=== PATIENT | male | born 1950 | race Caucasian/White ===

== ENCOUNTER → 2016-11-10 | Day surgery (SDC) | payer OTHER ==
[~2016-11-10] VITALS: Ht 185.4 cm; Wt 76.2 kg
[~2016-11-10] MED LIST: ALLOPURINOL300 M1 PO; FLOMAX0.4 M1 PO; PERCOCET 5-3251 EACH PO
--- NOTE | 2016-11-12 12:41 | RADIOLOGY REPORT ---
EXAMINATION: Fluoroscopy in the cystoscopy suite. CLINICAL INDICATION: Patient scheduled for right ureteroscopy and retrograde pyelography with stent placement. COMPARISON: None recent. TECHNIQUE: Fluoroscopic assistance was provided to Dr. Mark Anthony Victor in the cystoscopy suite. A total of 5 spot films are submitted for review. The total time fluoroscopy was 1.1 minutes FINDINGS/IMPRESSION: Initial injection of the distal right ureter shows a tortuous pelvic ureter and several intraluminal air bubbles. The following spot films document the steps taken in placement of a right ureteral stent, the proximal end of which is in the right renal pelvis and the distal end presumably in the bladder. Please refer to operative notes for further details.
--- NOTE | 2016-11-13 16:10 | Operative Report ---
Operative/Inv Procedure Report Surgery Date: 11/10/16 Name of Procedure: cystoscopy; right retrograde pyelogrma, right flexible ureteroscopy with laser lithotrypsy of ureter stone: right stent exchange. Pre-Operative Diagnosis: right stent and mid ureter stone Post-Operative Diagnosis: 1cm right mid ureter stone. Estimated Blood Loss: scant Surgeon/Chief Technical Officer: MATT PYLE MD Anesthesia: laryngeal mask airway Complications: NONE Condition: IMPROVED Operative/Procedure Note Note: Patient was taken to the operating room placed on the OR table in supine position. Timeout was performed, with the patient awake, in order to confirm the patient's correct identity, procedure, laterality, anesthesia, and other pertinent perioperative information.. After adequate anesthesia and antibiotics , the patient was then placed in lithotomy stirrups, draped and prepped in the usual surgical fashion. A 22 Vincentian cystoscope sheath with 30 angle lens was inserted without difficulty. Upon entering the bladder, the bladder was noted to be free of tumor, free of stone. Both orifices were in their orthotopic position, with clear reflux from the left ureter. The right ureter had a stent in place, which was grasped with an aligator grasper, and extracted intact, and without difficulty. The cystoscope was then re-inserted into the bladder. The right ureteral orifice was intubated with an 8 Vincentian cone-tipped catheter. Retrograde pyelogram was performed revealing a filling defect in the mid-proximal ureter consistent with large stone, and distal narrowing consistent with edema/ stricture. On fluoroscopy, there was mild proximal hydronephrosis. The cone- tipped catheter was removed, and then the right orifice was intubated with a 0.035 safety gluidewire. The Glidewire was advanced into the right ureter, and advanced into the right renal pelvis, with fluoroscopic visualization. Over the gluide wire, a flexible ureteroscope was rail-roaded, and advanced with fluoroscopic visualization into the right renal pelvis, with difficulty past the strictured area. The ureteroscope was then removed leaving the Glidewire in place. Over the Glidewire a 10 Vincentian by 35 cm ureteral access sheath was gently railroaded over the Glidewire. With fluoroscopic visualization, gentle dilatation with advancement of the ureteral access sheath was accomplished without difficultyt. The obturator was removed leaving the sheath in place. The gluidewire was left in place, and the flexible ureteroscope was advanced via the access sheath without difficulty. The large ureter stone was visualized, and under direct visualization the 400 g holmium YAG laser fiber was inserted through the ureteroscope. With the laser fiber in direct contact with the stone the yag laser was activated, and laser lithotrypsy under direct visualization was performed. The ureter stone was completely pulvorized into multiple fragments, confirmed on fluoroscopy. Several framents were extracted and sent for analysis. The mucosa around the obstructing stone was noted to be edematous, possibly strictured, therefore requiring insertion of a new stent to allow proper healing. The flexible ureteroscope was then advanced, and used to examin the renal pelvis, and all calyxes. Before removing the ureteroscope, the gluidewire was re-ninserted into the ureteroscope to be used for subsequent stent placement. With the flexible ureteroscope slowly retracted, he entire length of the ureter was aslo visualize in order to confim no significantly sized stone framents, nor tumor was seen on the way out. The Glidewire was then backloaded onto a 22 Vincentian cystoscope sheath with a 30 angle lens. The cystoscope was then reinserted into the bladder where the right orifice was visualized with the Glidewire and place. Over this Glidewire a 6 x 24 Bard onlay stent was inserted with the proximal coil visualized in the renal pelvis with fluoroscopy and the distal coil in the bladder cystoscopically the Glidewire was removed. Fluoroscopy was then performed in order to reveal the stent to be in proper place. The bladder was then drained via the cystoscope which was then removed. An 18 belarusian velázquez was then inserted without difficulty. The patient tolerated both procedures well, and was taken to the recovery room in satisfactory condition. Once discharged, the pt. will have pain medication, antibiotics and instructions to follow up in one or 4-6 week's time Findings: LARGE 1CM MID-URETER STONE WITH DISTAL EDEMA-POSSIBLE STRICTURE. Discharge Disposition: PACU Additional Comments: STENT REMOVAL IN 4-6 WEEKS. CC: MATT PYLE MD
== END ==
LOC: STS 01:22
DX: N13.2 Hydronephrosis with renal and ureteral calculous obstruction (principal); N28.89 Other specified disorders of kidney and ureter; N40.0 Benign prostatic hyperplasia without lower urinary tract symptoms
CPT/HCPCS: 74000; C2617; J2250

== ENCOUNTER → 2016-11-12 | Day surgery (SDC) | payer OTHER ==
--- NOTE | 2016-11-13 16:16 | Operative Report ---
Operative/Inv Procedure Report Surgery Date: 11/12/16 Name of Procedure: cystoscopy: right flexible ureteroscopy with laser lithotrypsy of ureter stone. dilatation of ureter stricture. regrograde pyelogram, right stent exchange. Pre-Operative Diagnosis: right ureter stone and stent Post-Operative Diagnosis: same Estimated Blood Loss: scant Surgeon/Fire Management Technician: MATT PYLE MD Anesthesia: laryngeal mask airway Specimens: right ureter stone fragments. and old right stent Complications: none Condition: improved Operative/Procedure Note Note: Patient was taken to the operating room placed on the OR table in supine position. Timeout was performed, with the patient awake, in order to confirm the patient's correct identity, procedure, laterality, anesthesia, and other pertinent perioperative information.. After adequate anesthesia and antibiotics , the patient was then placed in lithotomy stirrups, draped and prepped in the usual surgical fashion. A 22 Belarusian cystoscope sheath with 30 angle lens was inserted without difficulty. Upon entering the bladder, the bladder was noted to be free of tumor, free of stone. Both orifices were in their orthotopic position, with clear reflux from the left ureter. The right ureter had a stent in place, which was grasped with an aligator grasper, and extracted intact, and without difficulty. The cystoscope was then re-inserted into the bladder. The right ureteral orifice was intubated with an 8 Belarusian cone-tipped catheter. Retrograde pyelogram was performed revealing a filling defect in the mid-proximal ureter consistent with large stone, and distal narrowing consistent with edema/ stricture. On fluoroscopy, there was mild proximal hydronephrosis. The cone- tipped catheter was removed, and then the right orifice was intubated with a 0.035 safety gluidewire. The Glidewire was advanced into the right ureter, and advanced into the right renal pelvis, with fluoroscopic visualization. Over the gluide wire, a flexible ureteroscope was rail-roaded, and advanced with fluoroscopic visualization into the right renal pelvis, with difficulty past the strictured area. The ureteroscope was then removed leaving the Glidewire in place. Over the Glidewire a 10 Belarusian by 35 cm ureteral access sheath was gently railroaded over the Glidewire. With fluoroscopic visualization, gentle dilatation with advancement of the ureteral access sheath was accomplished without difficultyt. The obturator was removed leaving the sheath in place. The gluidewire was left in place, and the flexible ureteroscope was advanced via the access sheath without difficulty. The large ureter stone was visualized, and under direct visualization the 400 g holmium YAG laser fiber was inserted through the ureteroscope. With the laser fiber in direct contact with the stone the yag laser was activated, and laser lithotrypsy under direct visualization was performed. The ureter stone was completely pulvorized into multiple fragments, confirmed on fluoroscopy. Several framents were extracted and sent for analysis. The mucosa around the obstructing stone was noted to be edematous, possibly strictured, therefore requiring insertion of a new stent to allow proper healing. The flexible ureteroscope was then advanced, and used to examin the renal pelvis, and all calyxes. Before removing the ureteroscope, the gluidewire was re-ninserted into the ureteroscope to be used for subsequent stent placement. With the flexible ureteroscope slowly retracted, he entire length of the ureter was aslo visualize in order to confim no significantly sized stone framents, nor tumor was seen on the way out. The Glidewire was then backloaded onto a 22 Belarusian cystoscope sheath with a 30 angle lens. The cystoscope was then reinserted into the bladder where the right orifice was visualized with the Glidewire and place. Over this Glidewire a 6 x 24 Bard onlay stent was inserted with the proximal coil visualized in the renal pelvis with fluoroscopy and the distal coil in the bladder cystoscopically the Glidewire was removed. Fluoroscopy was then performed in order to reveal the stent to be in proper place. The bladder was then drained via the cystoscope which was then removed. An 18 haitian velázquez was then inserted without difficulty draining clear fluid-to be removed in RR. The patient tolerated both procedures well, and was taken to the recovery room in satisfactory condition. Once discharged, the pt. will have pain medication, antibiotics and instructions to follow up in one or 4-6 week's time Findings: large right mid-ureter stone: and stricture. Discharge Disposition: PACU CC: MATT PYLE MD
--- NOTE | 2016-11-15 10:11 | RADIOLOGY REPORT ---
EXAMINATION: C-ARM FLUOROSCOPIC ASSISTANCE CLINICAL INDICATION: Right-sided ureteroscopy, lithotripsy and stent exchange in the OR. COMPARISON: None. TECHNIQUE: 3 spot radiographs were obtained at the time of the procedure. Fluoroscopy time: 3.0 minutes. FINDINGS: Three spot radiographs were obtained at the time of the procedure. Full procedural detail will be dictated by Dr. Victor. IMPRESSION: Three spot radiographs were obtained at the time of the procedure. Full procedural detail will be dictated by Dr. Victor.
== END ==
LOC: STS 03:25
DX: N13.2 Hydronephrosis with renal and ureteral calculous obstruction (principal); N13.5 Crossing vessel and stricture of ureter without hydronephrosis; M10.9 Gout, unspecified
CPT/HCPCS: 74000; 82355; 93005; 93010; C2617; J0131; J1100; J1885; J2250; J2405

== ENCOUNTER → 2017-06-29 | Day surgery (SDC) | payer OTHER ==
[~2017-06-29] VITALS: Ht 185.4 cm; Wt 75.3 kg
--- NOTE | 2017-06-29 19:31 | Operative Report ---
Operative/Inv Procedure Report Surgery Date: 06/29/17 Name of Procedure: Preperitoneal laparoscopic mesh repair of right inguinal hernia Pre-Operative Diagnosis: Right inguinal hernia Post-Operative Diagnosis: Same, direct Estimated Blood Loss: scant Surgeon/Concrete Buster Operator: Db FERNANDEZ,Arturo Terrell Anesthesia: general endotracheal tube Operative/Procedure Note Note: Patient was positioned supine on the table. After successful induction of general anesthesia the inguinal and surrounding areas were clipped prepped and draped in the usual sterile fashion. After injection of local anesthetic at the bottom of the umbilicus off the midline, to the right, a 1 1/2 cm curved incision was made with a 15 blade, then deepened through Yanira's fascia, sweeping off the rectus sheath. A horizontal 1-1/2 cm incision was made between the fibers, elevating these edges with 0 Vicryl stay sutures. Then retracting the muscle laterally, clearing off the posterior rectus sheath, this space is developed down the midline to the pubis sequentially, with an S retractor, a peanut dissector, then the balloon-camera device, inflating it 30-40 pumps while watching how it opens up the space, keeping the epigastrics up. The balloon is then replaced with a 10 mm Barker trocar, inserted, shortened, and secured with the stay sutures, gas turned on to 12 not 15 mm. Then two 5 mm trochars are inserted in the midline just below the camera, spaced by approximately 3 cm. Using mostly blunt dissection with peanuts to define the anatomy, first Luis Carlos's ligament is swept off medially, checking the medial spaces, direct and femoral. Then we returned to the area medial to the fat pad where the hernia sac was adherent, coursing up just medial to the vein, up through the defect. The hernia sac and contents was reduced and that lip of peritoneum was swept down and proximally to the level of the bladder and off the vas a little laterally. The cord structures form a triangle with the vas approaching medially and the main vessels approaching laterally, with the apex at the deep ring, then from the underlying iliac fat. A Then briefly skipping over the area of the iliac fat pad, we developed the iliopubic tract out laterally to the iliac crest. Then the thin lip of peritoneum is gently peeled down to the base of this "triangle," a Parietex sided mesh with the suture, is marked and stuffed down the camera trocar, then unfurled in a systematic fashion, first with the smaller leaflet passing behind the cord structures, until the flap covers the epigastrics, covering the deep ring, then the larger leaflet is released from the suture, double-covering the smaller one, but also extends laterally out to the iliac crest, medially over Luis Carlos's ligament, and superiorly towards the camera. There is a third part of the mesh, that covers the iliac fat pad like a skirt. The mesh was adjusted back and forth so that the keyhole is centered around the cord, lays flat and the edges are not curling. A trial run of letting the gas escape a little bit to see how the mesh would lay as the peritoneum comes back down is done, then when we're satisfied, we let rest of the gas escape, pulling out the instruments and trochars. The fascia is closed with a [id number] 0 Vicryl suture, tying the stay sutures on top. Then we closed the 3 skin incisions with interrupted 4-0 Monocryl, 3 for the umbilical, one each for the smaller ones, followed by Mastisol, Steri-Strips and Band-Aids. Overall estimated blood loss was minimal, lap and sponge counts were correct, wound expectancy was clean, IV fluids crystalloid, complications none, patient tolerated the procedure well, did not significantly cohen during extubation and was returned to the recovery room in satisfactory condition.
== END ==
LOC: STS 03:42
DX: K40.90 Unilateral inguinal hernia, without obstruction or gangrene, not specified as recurrent (principal); N40.0 Benign prostatic hyperplasia without lower urinary tract symptoms
CPT/HCPCS: C1781; J0131; J0690; J1100; J2250; J2405